=== PATIENT | male | born 1955 | race Caucasian/White ===

== ENCOUNTER 2018-12-29 07:56 | Day surgery (SDC) | payer OTHER ==
[2018-12-29 08:50] VITALS: BMI 29.4
[2018-12-29] MEDS ORDERED: LIDOCAINE HCL/PF 2% SDV 5ML VIAL ONE (09:35)
[2018-12-29 10:35] VITALS: TEMP 98.4
[2018-12-29 10:37] VITALS: BP 120/70; PULSE 52
--- NOTE | 2019-01-03 12:15 | PATH ---
Surgical Pathology Report Patient Name: CESAR URRUTIA [facility]. Rec. #: [id number] /Age/Gender: 1955 (Age: 63) / M Account: [id number] Location: [facility] Taken: 12/29/2018 Received: 12/29/2018 Reported: 01/03/2019 Physicians: Grady Mcdowell M.D. Specimen(s) Received A: BX POLYP LEFT COLON AND HOT SNARE POLYPECTOMY B: HOT SNARE POLYPECTOMY PROXIMAL SIGMOID COLON Clinical History Screening Postoperative diagnosis: Colon polyps, diverticulosis Final Diagnosis A. LEFT COLON, POLYP, BIOPSY AND HOT SNARE POLYPECTOMY: SESSILE SERRATED POLYP. B. PROXIMAL SIGMOID COLON, POLYP, HOT SNARE POLYPECTOMY: HYPERPLASTIC POLYP. Electronically Signed Adore Ware M.D. Gross Description A. Received in formalin, labeled "biopsy right colon and hot snare polypectomy " are multiple portions of casas, irregular soft tissue ranging from 0.1-0.7 cm. in greatest dimension. The specimens are submitted in toto in one cassette. B. Received in formalin, labeled "hot snare polypectomy proximal sigmoid" are two casas, irregular portions of soft tissue measuring 0.2 cm and 0.5 cm. in greatest dimension. The specimens are submitted in toto in one cassette. 12/30/201812/30/2018
== END 2018-12-29 10:35 | disposition home or self-care (01) ==
LOC: FASU-ENDO 07:56
PROVIDERS: ATTEND Internal Medicine Gastroenterology
PROC: 0DBN8ZX Excision of Sigmoid Colon, Via Natural or Artificial Opening Endoscopic, Diagnostic (ICD-10-PCS; 2018-12-29)
PROC: 0DBM8ZX Excision of Descending Colon, Via Natural or Artificial Opening Endoscopic, Diagnostic (ICD-10-PCS; principal; 2018-12-29 09:37)
DX: Z12.11 Encounter for screening for malignant neoplasm of colon (principal); D12.4 Benign neoplasm of descending colon; D12.5 Benign neoplasm of sigmoid colon; K57.30 Diverticulosis of large intestine without perforation or abscess without bleeding
CPT/HCPCS: 88305-TC